=== PATIENT | female | born 1950 | race Two or more races ===

== ENCOUNTER 2024-06-30 19:25 | Emergency (ER) | payer OTHER ==
[~2024-06-30] VITALS: Ht 152.4 cm; Wt 68.0 kg
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
--- NOTE | 2024-06-30 20:59 | DVH ---
EXAM: CT HEAD WITHOUT CONTRAST INDICATION: [facility] TECHNIQUE: CT of the head without intravenous contrast. Radiation Dose Information: CT Dose: CTDI volume is 50.54 mGy. Dose-length product is 810.42 mGy*cm The dose indicators for CT are the volume Computed Tomography (CT) Dose Index (CTDIvol) and the Dose Length Product (DLP), and are measured in units of mGy and mGy-cm, respectively. These indicators are not patient dose, but values generated from the CT scanner acquisition factors. The report includes radiation exposure data for exposures received during this examination. COMPARISON: None FINDINGS: There is no evidence of acute intracranial hemorrhage, extra-axial collection, mass effect, midline s hift, herniation or hydrocephalus. The ventricles, sulci and cisterns are age appropriate. The pickett-white differentiation is intact. Patchy periventricular and subcortical white matter hypoattenuation is nonspecific but may be related to small vessel ischemic disease. Mucosal thickening left maxillary and ethmoid sinuses and mastoid air cells are clear. Soft tissue swelling over the left frontal skull with no underlying fracture or intracranial hemorrha ge IMPRESSION: 1. .No acute intracranial hemorrhage. 2. Soft tissue swelling of the left frontal skull. 3. Mucosal thickening of the left maxillary and ethmoid sinuses.
[2024-06-30] MEDS: ACETAMINOPHEN 325 MG TAB PO ONE (23:39)
[2024-07-01 00:17] VITALS: BP 156/77; PULSE 96; RESP 20; TEMP 98.5; O2SAT 96
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
--- NOTE | 2024-07-01 02:38 | ECG ---
[facility] Test Date: 2024-06-30 Test Time: 19:52:43 Pat Name: URBANO PRAKASH Department: ED Room: Gender: F [employer]: ALEX : 1950 Requested By: RANDY AYALA Order Number: [id number] Reading MD: Measurements Intervals [place] Rate: 82 P: 74 ID: [id number] QRS: 94 QRSD: 78 T: -47 QT: 542 QTc: 633 Interpretive Statements Sinus rhythm Right axis deviation Borderline T abnormalities, diffuse leads Prolonged QT interval Please click the below link to view image of tracing.
== END 2024-07-01 00:20 | disposition home or self-care (01) ==
LOC: EDBD 19:25 → ER 19:25
DX: S20.219A Contusion of unspecified front wall of thorax, initial encounter (principal); R51.9 Headache, unspecified; J45.909 Unspecified asthma, uncomplicated; I10 Essential (primary) hypertension; V89.2XXA Person injured in unspecified motor-vehicle accident, traffic, initial encounter; Y93.89 Activity, other specified; Y92.89 Other specified places as the place of occurrence of the external cause; Y99.8 Other external cause status
CPT/HCPCS: 70450; 71046; 72170; 73590; 93005